=== PATIENT | female | born 1940 | race Caucasian/White ===

== ENCOUNTER 2018-12-19 13:27 | Emergency (ER) | payer OTHER | END 2018-12-19 16:25 | disposition home or self-care (01) | LOC: FER 13:27 ==

== ENCOUNTER 2019-02-06 20:05 | Emergency (ER) | payer OTHER ==
[2019-02-06] MEDS ORDERED: TETRACAINE 0.5% OPHTH SOLN 2 ML BOTTLE ONE (20:11)
[2019-02-06] MEDS ORDERED: FLUORESCEIN NA 1 EA STRIP ONE (20:12)
[2019-02-06 20:19] VITALS: BP 129/67; PULSE 86; TEMP 98.2; BMI 40.2
--- NOTE | 2019-02-06 20:35 | PDOC ---
Documentation entered by Mayte Menchaca SCRIBE, acting as scribe for Sophie Son MD. Sophie Son MD: This documentation has been prepared by the sugaribe, Mayte Menchaca SCRIBE, under my direction and personally reviewed by me in its entirety. I confirm that the documentation accurately reflects all work , treatment, procedures, and medical decision making performed by me. History of Present Illness - General Chief Complaint: Foreign Body (FB) Stated Complaint: GLASS IN EYE History Source: Patient Exam Limitations: No Limitations - History of Present Illness Initial Comments: 02/06/19 20:35 The patient is an 78 year old female who presents to the emergency department with right eye irritation. The patient reports a glass dropped in front of her, and she felt a piece go into her right eye. The patient reports she feels scratching inside the eyes, denies pain. PAST MEDICAL HISTORY: COPD, HTN, HLD, GERD, arthritis, anxiety PAST SURGICAL HISTORY: TKR FAMILY HISTORY: no pertinent history SOCIAL HISTORY: Pt lives with family. MEDICATIONS: reviewed ALLERGIES: As per nursing notes ROS: General: No fevers or chills, no weakness, no weight loss HEENT: +right eye irritation. No change in vision. No sore throat,. No ear pain CardioVascular: No chest pain or shortness of breath Respiratory:No cough, or wheezing. Gastrointestinal: no nausea, vomiting, diarrhea or constipation, No rectal bleeding Genitourinary: No dysuria, hematuria, or frequency Musculoskeletal: No joint or muscle pain or swelling Neurologic: No headache, vertigo, dizziness or loss of consciousness Psychiatric: nor depression Skin: No rashes or easy bruising Endocrine: no increased thirst or abnormal weight change Allergic: no skin or latex allergy All other systems reviewed and normal PE: GENERAL: The patient is awake, alert, and fully oriented, in no acute distress. HEAD: Normal with no signs of trauma. EYES: Pupils equal, round and reactive to light, extraocular movements intact, sclera anicteric, conjunctiva clear. +Right eye: no foreign body visible. Right eyelid everted no foreign body visible. No increase uptake with fluorescein staining. Eye examined under the microscope, no foreign body visible, no evidence of corneal abrasion. EXTREMITIES: Normal range of motion, no edema. NEUROLOGICAL: Normal speech, normal gait. PSYCH: Normal mood, normal affect. SKIN: Warm, Dry, normal turgor, no rashes or lesions noted. Assessment and plan: This is an 78-year-old female who comes in complaining of right eye irritation. Patient said a dish shattered and right after that she felt some irritation in the right eye but denies any pain. Patient is concerned there may be some glass in the eye. On my exam there was no foreign body visible there was no increased in uptake with fluorescein staining and no injection of the conjunctiva or tearing. Patient discharged home and told to follow-up with her collections analyst tomorrow if she still has an discomfort. 02/06/19 20:39 Past History - Past Medical History Allergies/Adverse Reactions: Allergies Allergy/AdvReac Type Severity Reaction Status Date / Time oxycodone Allergy Verified 12/19/18 13:43 Sulfa (Sulfonamide Allergy Verified 12/19/18 13:43 Antibiotics) Home Medications: Ambulatory Orders Alprazolam 0.5 mg PO DAILY PRN 12/19/18 Clonazepam 0.5 mg PO BID PRN 12/19/18 Escitalopram Oxalate [Lexapro -] 10 mg PO DAILY 12/19/18 Isosorbide Mononitrate [Isosorbide Mononitrate ER] 30 mg PO DAILY 12/19/18 Lidocaine 5% Patch [Lidoderm Patch -] 1 patch TP DAILY #7 patch 12/19/18 Rabeprazole Sodium 20 mg PO DAILY 12/19/18 Simvastatin 20 mg PO DAILY 12/19/18 traMADol HCL [Ultram -] 50 mg PO Q6H PRN #10 tablet MDD 4 12/19/18 COPD: No GI Disorders: Yes (ACID REFLUX) HTN: Yes Hypercholesterolemia: Yes - Psycho Social/Smoking Cessation Hx Smoking History: Never smoked Have you smoked in the past 12 months: No Hx Alcohol Use: No *Physical Exam - Vital Signs Last Vital Signs Temp Pulse Resp BP Pulse Ox 98.2 F 86 16 129/67 95 02/06/19 20:06 02/06/19 20:06 02/06/19 20:06 02/06/19 20:06 02/06/19 20:06 Discharge - Discharge Information Problems reviewed: Yes Clinical Impression/Diagnosis: Discomfort of eye Condition: Good Disposition: HOME - Admission No - Follow up/Referral Referrals: Ninoska Rodríguez [Primary Care Provider] - - Patient Discharge Instructions Additional Instructions: Call your eye doctor in the morning and get an appointment to follow-up if you still have any discomfort. Return to the emergency department immediately with ANY new, persistent or worsening symptoms. Continue any medications as previously prescribed by your physician. You should follow up with your primary doctor as soon as possible regarding today's emergency department visit. . Please make sure your doctor reviews the results of your emergency evaluation. Thank you for coming to the Emergency Department today for your care. It was a pleasure to see you today. Please note that your evaluation is INCOMPLETE until you follow-up with your doctor. - Post Discharge Activity
== END 2019-02-06 20:45 | disposition home or self-care (01) ==
LOC: FER 20:05
DX: H57.11 Ocular pain, right eye (principal); J44.9 Chronic obstructive pulmonary disease, unspecified; I10 Essential (primary) hypertension; E78.5 Hyperlipidemia, unspecified; K21.9 Gastro-esophageal reflux disease without esophagitis; M19.90 Unspecified osteoarthritis, unspecified site; F41.9 Anxiety disorder, unspecified; W20.8XXA Other cause of strike by thrown, projected or falling object, initial encounter; Y93.89 Activity, other specified; Y92.89 Other specified places as the place of occurrence of the external cause; Z88.6 Allergy status to analgesic agent; Z88.2 Allergy status to sulfonamides
CPT/HCPCS: 99281-25

== ENCOUNTER 2021-09-17 14:25 | Emergency (ER) | payer OTHER ==
[2021-09-17 16:57] LABS: HEMATOCRIT 39.7 % (32.4-45.2); HEMOGLOBIN 13.6 G/dL (10.7-15.3); MCHC 34.1 g/dl (32.0-36.0); MEAN CELL VOLUME 96.8 fl (80-96); MEAN PLT VOLUME 11.5 fl (7.5-11.1); PLATELET COUNT 114.9 10^3/uL (134-434); RDW 15.4 % (11.6-15.6); WHITE BLOOD COUNT 7.9 10^3/uL (4.0-10.8)
[2021-09-17 17:05] LABS: CALCIUM 9.8 mg/dl (8.5-10)
[2021-09-17 17:12] LABS: ALBUMIN 4.7 g/dl (3.4-5.0); BILIRUBIN,TOTAL 0.7 mg/dl (0.2-1); CREATININE 0.5 mg/dl (0.55-1.3); MAGNESIUM 1.9 mg/dL (1.8-2.4); PHOSPHOROUS 3.6 mg/dl (2.5-4.9)
[2021-09-17 17:14] VITALS: BP 147/74; PULSE 76; TEMP 98.9; BMI 35.8
[2021-09-17 18:03] LABS: VENOUS BASE EXCESS -1.8 mmol/L (-2-2); VENOUS O2 SATURATION 87.1 % (70-80); VENOUS PCO2 41.2 mmHg (38-52); VENOUS PH 7.371 (7.310-7.410)
== END 2021-09-17 18:53 | disposition home or self-care (01) ==
LOC: FER 14:25
DX: R53.1 Weakness (principal)
CPT/HCPCS: 0241U-QW; 36415; 71046-TC-FY; 80053; 81003; 82803; 83735; 84100; 84443; 84484; 85027; 87086; 93005; 99285-25